=== PATIENT | female | born 1985 | race Caucasian/White ===

== ENCOUNTER → 2016-12-27 | Outpatient (CLI) | payer BC | END | disposition home or self-care (01) | LOC: C.PAPS 16:32 | PROVIDERS: ATTEND Obstetrics & Gynecology | DX: Z01.419 Encounter for gynecological examination (general) (routine) without abnormal findings (principal); Z87.898 Personal history of other specified conditions ==

== ENCOUNTER → 2017-01-04 | Outpatient (CLI) | payer BC ==
--- NOTE | 2017-01-04 15:19 | MAMMOGRAPHY REPORT ---
BILATERAL DIGITAL DIAGNOSTIC MAMMOGRAM TOMOSYNTHESIS WITH CAD AND TARGETED LEFT ULTRASOUND: 01/04/2017 CLINICAL HISTORY: 31 year-old woman with a strong family history of breast cancer = mother, diagnosed at age 35 or 36, presents for baseline screening mammogram. Not yet tested for BRCA. TECHNIQUE: Bilateral breast tomosynthesis in addition to standard 2D mammography was performed. Curre nt study was also evaluated with a Computer Aided Detection (CAD) system. COMPARISON: No prior exams were available for comparison. BREAST COMPOSITION: The tissue of both breasts is heterogeneously dense, which may obscure small mas ses. FINDINGS: In the lateral posterior left breast on CC tomosynthesis slight , there is a possible partially circumscribed and partially obscured 9 mm mass, for which further evaluation with ultrasoun d was performed. No other obvious mass, architectural distortion, asymmetry or cluster of microcalci fications is seen. Targeted ultrasound was performed in the lateral left breast. In the 3:00 axis, 4 cm from the nipple , there is an oval parallel circumscribed anechoic benign simple cyst with posterior acoustic enhance ment, measuring 6.7 x 2.8 x 7.4 mm. This correlates well with the partially circumscribed mammograph ic mass and is benign. Incidental note is made of 2 additional benign cysts in the 1:00 left breast, 4 cm from the nipple, measuring 3.2 x 2.0 x 3.6 m, and in the 1:00 left breast, 1 cm from the nipple , measuring 4.9 x 2.4 x 5.5 mm. IMPRESSION: ACR BI-RADS CATEGORY 2: BENIGN, TARGETED ULTRASOUND ACR BI-RADS CATEGORY 2: BENIGN There are benign cysts in the lateral left breast, one of the cysts in the 3:00 axis correlates with a partially circumscribed and obscured mammographic mass. These findings are compatible with benign fibrocystic changes. There is no mammographic evidence of malignancy bilaterally. Recommend continu ation of yearly screening mammograms, and also additional screening with breast MRI, given the strong family history of premenopausal breast cancer and dense breasts. These results and recommendations were discussed with the patient at the time of the exam. Approximately 10% of breast cancers are not detected with mammography. A negative mammographic report should not delay biopsy if a clinically suggestive mass is present. Pattie Kemp M.D. ay/:01/04/2017 10:24:49 Hardware Engineering Manager: Kiana Harvey RT(R)(M), [facility] letter sent: Normal /2 BI-RADS Code: ACR BI-RADS Category 2: Benign Ultrasound BI-RADS: ACR BI-RADS Category 2: Benign
== END | disposition home or self-care (01) ==
LOC: C.MAMM 09:29
PROVIDERS: ATTEND Obstetrics & Gynecology
DX: Z12.31 Encounter for screening mammogram for malignant neoplasm of breast (principal); Z80.3 Family history of malignant neoplasm of breast; N60.02 Solitary cyst of left breast